=== PATIENT | female | born 1980 | race African-American/Black ===

== ENCOUNTER 2018-06-11 01:15 | Inpatient (IN) | payer MEDICAID, OTHER ==
[~2018-06-11] VITALS: Ht 162.6 cm; Wt 74.4 kg
[2018-06-11] MEDS ORDERED: MORPHINE SULFATE 4 MG/ML CPJ (NOT FOR IM USE) IV ONE (05:30)
[2018-06-11] MEDS ORDERED: ONDANSETRON HCL 4MG/2ML INJ IV ONE (05:30)
[2018-06-11] MEDS ORDERED: ONDANSETRON 4MG ODT PO ONE (05:45)
[2018-06-11] MEDS ORDERED: MORPHINE SULFATE 10 MG/ML CPJ IM ONE ×3 (05:45→13:45)
[2018-06-11 06:13] LABS: BASOPHILS % 0.7 % (0.0-2.0); EOSINOPHILS % 0.9 % (0.0-5.0); HEMATOCRIT. 30.8 % (36.0-48.0); HEMOGLOBIN. 9.2 g/dL (12.0-16.0); LYMPHOCYTES % 40.5 % (20.0-50.0); MEAN CORPUSCULAR HEMOGLOBIN 23.5 pg (28.0-32.0); MEAN CORPUSCULAR VOLUME 78.5 fL (81.0-99.0); MEAN PLATELET VOLUME 7.6 fl (7.4-10.4); MONOCYTES % 10.9 % (2.0-8.0); PLATELET 162 x1000/uL (130-400); RED BLOOD CELL COUNT 3.92 mill/uL (4.2-5.4); RED CELL DISTRIBUTION WIDTH 23.4 % (11.6-14.6)
[2018-06-11 06:19] LABS: CHLORIDE 100 mEq/L (98-107)
[2018-06-11] MEDS ORDERED: SODIUM CHLORIDE 0.9% 1,000 ML IV ONE (07:30)
[2018-06-11 08:22] LABS: PHOSPHORUS 3.4 mg/dL (2.5-4.9)
[2018-06-11] MEDS ORDERED: MORPHINE SULFATE 10 MG/ML CPJ IV ONE ×2 (08:30→11:00)
[2018-06-11 10:50] LABS: PLATELET ESTIMATE NORMAL
[2018-06-11] MEDS ORDERED: INSULIN REGULAR (HUMULIN R) 300UNITS/3ML SUBCUT ONE (11:00)
[2018-06-11 15:25] VITALS: BP 114/66
[2018-06-11] MEDS ORDERED: DOCUSATE SODIUM 100MG CAPSULE PO PRN (16:00)
[2018-06-11] MEDS ORDERED: CLONIDINE 0.1MG TABLET PO PRN (16:00)
[2018-06-11] MEDS ORDERED: MAGNESIUM/ALUMINUM HYDROXIDE/SIMETHICONE 30ML UDC PO PRN (16:00)
[2018-06-11] MEDS ORDERED: ONDANSETRON HCL 4MG/2ML INJ IV PRN (16:00)
[2018-06-11] MEDS ORDERED: IPRATROPIUM/ALBUTEROL 0.5-3(2.5)MG/3ML NEB INH PRN (16:00)
[2018-06-11] MEDS ORDERED: INSU100I28 SQ (16:01)
[2018-06-11] MEDS ORDERED: FOLI-43 PO (16:01)
[2018-06-11] MEDS ORDERED: HYDR8TAB2 PO (16:01)
[2018-06-11] MEDS ORDERED: HYDR500C18 PO (16:01)
[2018-06-11] MEDS ORDERED: RIVA20TA PO (16:01)
[2018-06-11] MEDS ORDERED: B50 GT (16:01)
[2018-06-11] MEDS ORDERED: INSU100C6 SQ (16:01)
[2018-06-11 16:05] VITALS: BP 114/66
[2018-06-11] MEDS ORDERED: DEXTROSE 50% WATER 50ML SYRINGE IV PRN (16:15)
[2018-06-11] MEDS: DIPHENHYDRAMINE 50MG/ML VIAL IV PRN (16:34)
[2018-06-11] MEDS: HYDROMORPHONE HCL/PF 2MG/ML CPJ IV PRN ×2 (16:35→21:46)
[2018-06-11] MEDS: BLOOD SUGAR DIAGNOSTIC STRIP TEST SCH ×3 (17:06→20:21)
[2018-06-11] MEDS: RIVAROXABAN 20 MG TABLET PO SCH (17:23)
[2018-06-11] MEDS: INSULIN LISPRO 100 UNITS/ML SUBCUT SCH ×2 (17:27→20:23)
[2018-06-11] MEDS: HYDROXYUREA 500MG CAPSULE PO SCH (18:14)
[2018-06-11 19:25] LABS: HAPTOGLOBIN 85 mg/dL (30-200)
[2018-06-11 19:35] LABS: CLARITY URINE CLEAR (CLEAR); COLOR URINE YELLOW (YELLOW); KETONES URINE NEGATIVE (NEGATIVE); LEUKOCYTE ESTERASE URINE NEGATIVE (NEGATIVE); NITRITE URINE NEGATIVE (NEGATIVE); OCCULT BLOOD URINE NEGATIVE (NEGATIVE); PH URINE 6.5 (4.5-8.0); PROTEIN URINE NEGATIVE (NEGATIVE); SPECIFIC GRAVITY URINE 1.029 (1.005-1.030); UROBILINOGEN URINE 0.2 E.U./dL (0.2-1.0)
[2018-06-11 19:50] LABS: *AMPHETAMINES SCREEN URINE NEGATIVE (NEGATIVE); *BARBITURATES SCREEN URINE NEGATIVE (NEGATIVE); *BENZODIAZEPINES SCREEN URINE NEGATIVE (NEGATIVE); *COCAINE SCREEN URINE NEGATIVE (NEGATIVE); METHADONE URINE SCREEN NEGATIVE (NEGATIVE); PHENCYCLIDINE URINE SCREEN NEGATIVE (NEGATIVE)
[2018-06-11 19:52] LABS: CANNABINOID URINE SCREEN NEGATIVE (NEGATIVE); OPIATES URINE SCREEN PRESUMTIVE POSITIVE (NEGATIVE)
[2018-06-11 20:00] VITALS: BP 110/67
[2018-06-12] VITALS: BP 117/62
[2018-06-12 03:05] VITALS: BP 106/58
[2018-06-12] MEDS: HYDROMORPHONE HCL/PF 2MG/ML CPJ IV PRN ×5 (03:06→21:16)
[2018-06-12] MEDS: DIPHENHYDRAMINE 50MG CAPSULE PO PRN (05:07)
[2018-06-12] MEDS: INSULIN LISPRO 100 UNITS/ML SUBCUT SCH ×4 (06:12→22:39)
[2018-06-12 08:00] VITALS: BP 113/56
[2018-06-12] MEDS: PANTOPRAZOLE SODIUM 40 MG/VIAL IV SCH (08:32)
[2018-06-12] MEDS: FOLIC ACID 1MG TABLET PO SCH (08:43)
[2018-06-12] MEDS: HYDROXYUREA 500MG CAPSULE PO SCH ×2 (08:43→17:00)
[2018-06-12] MEDS: BLOOD SUGAR DIAGNOSTIC STRIP TEST SCH ×3 (11:27→21:00)
[2018-06-12 12:00] VITALS: BP 130/59
[2018-06-12] MEDS ORDERED: SODIUM BICARBONATE 4% (2.4MEQ) 5ML VIAL IV ONE (12:02)
[2018-06-12] MEDS ORDERED: LIDOCAINE HCL 1% 20ML VIAL (Pyxis) INJ ONE (12:02)
[2018-06-12] MEDS: DIPHENHYDRAMINE 50MG/ML VIAL IV PRN ×3 (13:45→23:00)
[2018-06-12 16:08] VITALS: BP 126/67
[2018-06-12] MEDS: RIVAROXABAN 20 MG TABLET PO SCH (17:27)
[2018-06-12 18:52] LABS: BASOPHILS % 0.4 % (0.0-2.0); EOSINOPHILS % 0.7 % (0.0-5.0); HEMATOCRIT. 27.8 % (36.0-48.0); HEMOGLOBIN. 8.5 g/dL (12.0-16.0); MEAN CORPUSCULAR HEMOGLOBIN 23.3 pg (28.0-32.0); MEAN CORPUSCULAR VOLUME 75.9 fL (81.0-99.0); MEAN PLATELET VOLUME 7.9 fl (7.4-10.4); MONOCYTES % 7.2 % (2.0-8.0); NEUTROPHILS % 49.7 % (40.0-76.0); PLATELET 166 x1000/uL (130-400); RED BLOOD CELL COUNT 3.67 mill/uL (4.2-5.4); RED CELL DISTRIBUTION WIDTH 23.3 % (11.6-14.6)
[2018-06-12 18:59] LABS: CHLORIDE 100 mEq/L (98-107)
[2018-06-12 19:22] LABS: T4 FREE > 8.00 ng/dL (0.76-1.46)
[2018-06-12 19:24] LABS: HEPATITIS B SURFACE ANTIGEN NEGATIVE
[2018-06-12 19:54] LABS: HEPATITIS A AB IGM NEGATIVE (NEGATIVE)
[2018-06-12 20:00] VITALS: BP 119/66
[2018-06-13] VITALS: BP 119/56
[2018-06-13] MEDS: HYDROMORPHONE HCL/PF 2MG/ML CPJ IV PRN ×6 (01:10→22:29)
[2018-06-13] MEDS: DIPHENHYDRAMINE 50MG/ML VIAL IV PRN ×5 (02:58→20:09)
[2018-06-13 04:00] VITALS: BP 103/51
[2018-06-13] MEDS: SODIUM CHLORIDE 0.9% 1,000 ML IV SCH (05:13)
[2018-06-13] MEDS: BLOOD SUGAR DIAGNOSTIC STRIP TEST SCH ×4 (05:56→21:10)
[2018-06-13] MEDS: INSULIN LISPRO 100 UNITS/ML SUBCUT SCH ×4 (07:24→21:10)
[2018-06-13 08:00] VITALS: BP 117/65
[2018-06-13] MEDS: PANTOPRAZOLE SODIUM 40 MG/VIAL IV SCH ×2 (09:00→09:19)
[2018-06-13] MEDS: HYDROXYUREA 500MG CAPSULE PO SCH ×2 (09:19→17:14)
[2018-06-13] MEDS: FOLIC ACID 1MG TABLET PO SCH (09:19)
[2018-06-13 12:00] VITALS: BP 112/54
[2018-06-13] MEDS: RIVAROXABAN 20 MG TABLET PO SCH (17:14)
[2018-06-13 20:00] VITALS: BP 113/56
[2018-06-13] MEDS ORDERED: INSULIN GLARGINE UD 100 UNITS/ML SYR SUBCUT SCH (22:00)
[2018-06-13] MEDS: DIPHENHYDRAMINE 50MG CAPSULE PO PRN (22:47)
[2018-06-14] VITALS (8 sets, daily range): BP systolic 104–126; BP diastolic 54–79
[2018-06-14] MEDS: HYDROMORPHONE HCL/PF 2MG/ML CPJ IV PRN ×6 (02:45→20:57)
[2018-06-14] MEDS: DIPHENHYDRAMINE 50MG CAPSULE PO PRN (05:29)
[2018-06-14] MEDS: INSULIN LISPRO 100 UNITS/ML SUBCUT SCH ×4 (06:26→21:35)
[2018-06-14] MEDS: BLOOD SUGAR DIAGNOSTIC STRIP TEST SCH ×4 (06:29→21:00)
[2018-06-14] MEDS: PANTOPRAZOLE SODIUM 40 MG/VIAL IV SCH (09:00)
[2018-06-14] MEDS: FOLIC ACID 1MG TABLET PO SCH (09:35)
[2018-06-14] MEDS: HYDROXYUREA 500MG CAPSULE PO SCH ×2 (09:40→18:11)
[2018-06-14] MEDS: DIPHENHYDRAMINE 50MG/ML VIAL IV PRN ×3 (10:58→19:23)
[2018-06-14 16:07] LABS: BASOPHILS % 0.3 % (0.0-2.0); EOSINOPHILS % 0.6 % (0.0-5.0); HEMATOCRIT. 26.1 % (36.0-48.0); HEMOGLOBIN. 8.2 g/dL (12.0-16.0); LYMPHOCYTES % 35.7 % (20.0-50.0); MEAN CORPUSCULAR VOLUME 76.5 fL (81.0-99.0); MONOCYTES % 5.8 % (2.0-8.0); NEUTROPHILS % 57.6 % (40.0-76.0); PLATELET 159 x1000/uL (130-400); RED BLOOD CELL COUNT 3.42 mill/uL (4.2-5.4); RED CELL DISTRIBUTION WIDTH 22.7 % (11.6-14.6)
[2018-06-14 16:17] LABS: CHLORIDE 99 mEq/L (98-107)
[2018-06-14] MEDS: RIVAROXABAN 20 MG TABLET PO SCH (18:11)
[2018-06-14] MEDS: INSULIN GLARGINE UD 100 UNITS/ML SYR SUBCUT SCH (21:34)
[2018-06-15] VITALS: BP 111/63
[2018-06-15] MEDS: DIPHENHYDRAMINE 50MG CAPSULE PO PRN ×3 (00:11→18:33)
[2018-06-15] MEDS: HYDROMORPHONE HCL/PF 2MG/ML CPJ IV PRN ×3 (00:11→06:14)
[2018-06-15 04:00] VITALS: BP 119/69
[2018-06-15] MEDS: BLOOD SUGAR DIAGNOSTIC STRIP TEST SCH ×4 (06:15→20:49)
[2018-06-15] MEDS: DIPHENHYDRAMINE 50MG/ML VIAL IV PRN (06:15)
[2018-06-15] MEDS: INSULIN LISPRO 100 UNITS/ML SUBCUT SCH ×4 (06:39→20:49)
[2018-06-15 08:00] VITALS: BP 123/72
[2018-06-15] MEDS: FAMOTIDINE 20MG TABLET PO SCH ×2 (08:34→15:57)
[2018-06-15] MEDS: FOLIC ACID 1MG TABLET PO SCH (08:35)
[2018-06-15] MEDS: HYDROMORPHONE HCL 4MG TABLET PO PRN ×5 (08:36→21:33)
[2018-06-15] MEDS: HYDROXYUREA 500MG CAPSULE PO SCH ×2 (08:36→17:11)
[2018-06-15] MEDS: INSULIN GLARGINE UD 100 UNITS/ML SYR SUBCUT SCH ×3 (08:36→21:32)
[2018-06-15 11:59] VITALS: BP 115/69
[2018-06-15 13:23] LABS: BASOPHILS % 0.9 % (0.0-2.0); EOSINOPHILS % 1.1 % (0.0-5.0); HEMATOCRIT. 26.3 % (36.0-48.0); HEMOGLOBIN. 8.1 g/dL (12.0-16.0); LYMPHOCYTES % 33.8 % (20.0-50.0); MEAN CORPUSCULAR HEMOGLOBIN 24.2 pg (28.0-32.0); MEAN CORPUSCULAR VOLUME 78.8 fL (81.0-99.0); MEAN PLATELET VOLUME 7.9 fl (7.4-10.4); MONOCYTES % 7.1 % (2.0-8.0); NEUTROPHILS % 57.1 % (40.0-76.0); PLATELET 150 x1000/uL (130-400); RED BLOOD CELL COUNT 3.34 mill/uL (4.2-5.4); RED CELL DISTRIBUTION WIDTH 22.4 % (11.6-14.6)
[2018-06-15 13:44] LABS: CHLORIDE 101 mEq/L (98-107)
[2018-06-15 15:42] VITALS: BP 123/71
[2018-06-15] MEDS: RIVAROXABAN 20 MG TABLET PO SCH (17:11)
[2018-06-15] MEDS ORDERED: INSLIS SUBCUT (18:02)
[2018-06-15 20:00] VITALS: BP 115/61
[2018-06-15] MEDS: ACETAMINOPHEN 325MG TABLET PO PRN (21:32)
[2018-06-16] VITALS (7 sets, daily range): BP systolic 111–139; BP diastolic 59–79
[2018-06-16] MEDS: DIPHENHYDRAMINE 50MG CAPSULE PO PRN ×4 (00:55→20:11)
[2018-06-16] MEDS: HYDROMORPHONE HCL 4MG TABLET PO PRN ×8 (00:56→23:13)
[2018-06-16] MEDS: BLOOD SUGAR DIAGNOSTIC STRIP TEST SCH ×4 (06:29→21:06)
[2018-06-16] MEDS: INSULIN LISPRO 100 UNITS/ML SUBCUT SCH ×4 (06:33→21:09)
[2018-06-16] MEDS: FAMOTIDINE 20MG TABLET PO SCH ×2 (09:00→17:00)
[2018-06-16] MEDS: INSULIN GLARGINE UD 100 UNITS/ML SYR SUBCUT SCH ×2 (09:20→21:09)
[2018-06-16] MEDS: FOLIC ACID 1MG TABLET PO SCH (09:21)
[2018-06-16] MEDS: HYDROXYUREA 500MG CAPSULE PO SCH ×2 (09:21→17:08)
[2018-06-16] MEDS: SODIUM CHLORIDE 0.9% 1,000 ML IV SCH (16:30)
[2018-06-16] MEDS: RIVAROXABAN 20 MG TABLET PO SCH (17:13)
[2018-06-17] MEDS: HYDROMORPHONE HCL 4MG TABLET PO PRN ×8 (02:22→23:33)
[2018-06-17] MEDS: DIPHENHYDRAMINE 50MG CAPSULE PO PRN ×4 (02:22→23:32)
[2018-06-17 04:00] VITALS: BP 121/59
[2018-06-17] MEDS: SODIUM CHLORIDE 0.9% 1,000 ML IV SCH ×2 (05:50→19:10)
[2018-06-17] MEDS: BLOOD SUGAR DIAGNOSTIC STRIP TEST SCH ×4 (06:36→21:00)
[2018-06-17] MEDS: INSULIN LISPRO 100 UNITS/ML SUBCUT SCH ×4 (06:36→21:00)
[2018-06-17 08:00] VITALS: BP 113/63
[2018-06-17] MEDS: FAMOTIDINE 20MG TABLET PO SCH ×2 (08:22→17:33)
[2018-06-17] MEDS: HYDROXYUREA 500MG CAPSULE PO SCH ×2 (08:22→17:31)
[2018-06-17] MEDS: FOLIC ACID 1MG TABLET PO SCH (08:22)
[2018-06-17] MEDS: INSULIN GLARGINE UD 100 UNITS/ML SYR SUBCUT SCH ×2 (10:03→22:14)
[2018-06-17 12:00] VITALS: BP 117/72
[2018-06-17 15:30] LABS: BASOPHILS % 0.5 % (0.0-2.0); EOSINOPHILS % 0.5 % (0.0-5.0); HEMATOCRIT. 27.7 % (36.0-48.0); HEMOGLOBIN. 8.6 g/dL (12.0-16.0); LYMPHOCYTES % 26.8 % (20.0-50.0); MEAN PLATELET VOLUME 8.4 fl (7.4-10.4); MONOCYTES % 6.5 % (2.0-8.0); NEUTROPHILS % 65.7 % (40.0-76.0); PLATELET 192 x1000/uL (130-400); RED BLOOD CELL COUNT 3.59 mill/uL (4.2-5.4); RED CELL DISTRIBUTION WIDTH 22.3 % (11.6-14.6)
[2018-06-17 15:31] LABS: CHLORIDE 101 mEq/L (98-107)
[2018-06-17 16:00] VITALS: BP 144/72
[2018-06-17] MEDS: RIVAROXABAN 20 MG TABLET PO SCH (17:31)
[2018-06-17] MEDS: ACETAMINOPHEN 325MG TABLET PO PRN (18:19)
[2018-06-17] MEDS: DIPHENHYDRAMINE 50MG/ML VIAL IV PRN (19:52)
[2018-06-17 20:30] VITALS: BP 129/65
[2018-06-17 23:40] VITALS: BP 120/67
[2018-06-18] MEDS: HYDROMORPHONE HCL 4MG TABLET PO PRN ×7 (02:33→23:32)
[2018-06-18 04:30] VITALS: BP 123/67
[2018-06-18] MEDS: INSULIN LISPRO 100 UNITS/ML SUBCUT SCH ×4 (06:10→21:46)
[2018-06-18] MEDS: BLOOD SUGAR DIAGNOSTIC STRIP TEST SCH ×4 (06:10→20:28)
[2018-06-18] MEDS: DIPHENHYDRAMINE 50MG/ML VIAL IV PRN ×6 (06:15→18:50)
[2018-06-18] MEDS: HYDROXYUREA 500MG CAPSULE PO SCH ×3 (09:42→18:43)
[2018-06-18] MEDS: FAMOTIDINE 20MG TABLET PO SCH ×2 (09:42→18:15)
[2018-06-18] MEDS: FOLIC ACID 1MG TABLET PO SCH (09:42)
[2018-06-18] MEDS: INSULIN GLARGINE UD 100 UNITS/ML SYR SUBCUT SCH ×2 (09:49→21:47)
[2018-06-18] MEDS: RIVAROXABAN 20 MG TABLET PO SCH (18:43)
[2018-06-18 20:00] VITALS: BP 144/70
[2018-06-18] MEDS: DIPHENHYDRAMINE 50MG CAPSULE PO PRN (23:32)
[2018-06-19] VITALS (7 sets, daily range): BP systolic 91–140; BP diastolic 50–75
[2018-06-19 00:08] LABS: HEMATOCRIT. 25.6 % (36.0-48.0); HEMOGLOBIN. 8.1 g/dL (12.0-16.0); MEAN CORPUSCULAR HEMOGLOBIN 23.8 pg (28.0-32.0); MEAN CORPUSCULAR VOLUME 75.6 fL (81.0-99.0); MEAN PLATELET VOLUME 8.1 fl (7.4-10.4); PLATELET 176 x1000/uL (130-400); RED BLOOD CELL COUNT 3.39 mill/uL (4.2-5.4); RED CELL DISTRIBUTION WIDTH 22.6 % (11.6-14.6)
[2018-06-19] MEDS: BLOOD SUGAR DIAGNOSTIC STRIP TEST SCH ×4 (06:41→20:43)
[2018-06-19] MEDS: INSULIN LISPRO 100 UNITS/ML SUBCUT SCH ×4 (06:41→20:43)
[2018-06-19] MEDS: FOLIC ACID 1MG TABLET PO SCH ×2 (09:00→09:37)
[2018-06-19] MEDS: FAMOTIDINE 20MG TABLET PO SCH ×2 (09:00→18:00)
[2018-06-19] MEDS: INSULIN GLARGINE UD 100 UNITS/ML SYR SUBCUT SCH (09:43)
[2018-06-19 12:13] LABS: BASOPHILS % 0.3 % (0.0-2.0); EOSINOPHILS % 0.2 % (0.0-5.0); HEMATOCRIT. 23.9 % (36.0-48.0); HEMOGLOBIN. 7.7 g/dL (12.0-16.0); LYMPHOCYTES % 26.4 % (20.0-50.0); MEAN CORPUSCULAR HEMOGLOBIN 24.3 pg (28.0-32.0); MEAN CORPUSCULAR VOLUME 75.3 fL (81.0-99.0); MEAN PLATELET VOLUME 7.7 fl (7.4-10.4); MONOCYTES % 14.6 % (2.0-8.0); NEUTROPHILS % 58.5 % (40.0-76.0); PLATELET 183 x1000/uL (130-400); RED BLOOD CELL COUNT 3.17 mill/uL (4.2-5.4); RED CELL DISTRIBUTION WIDTH 22.2 % (11.6-14.6)
[2018-06-19 13:26] LABS: PLATELET ESTIMATE NORMAL
[2018-06-19] MEDS ORDERED: NALOXONE HCL 0.4 MG/ML 1ML VIAL IV SCH (14:00)
[2018-06-19] MEDS: RIVAROXABAN 20 MG TABLET PO SCH (18:00)
[2018-06-19] MEDS: HYDROXYUREA 500MG CAPSULE PO SCH (18:00)
[2018-06-19] MEDS: HYDROMORPHONE HCL 4MG TABLET PO PRN (21:03)
[2018-06-19] MEDS ORDERED: INSULIN GLARGINE UD 100 UNITS/ML SYR SUBCUT SCH (22:00)
[2018-06-20] VITALS: BP 97/62
[2018-06-20] MEDS: DIPHENHYDRAMINE 50MG CAPSULE PO PRN ×4 (03:49→21:47)
[2018-06-20] MEDS: HYDROMORPHONE HCL 4MG TABLET PO PRN ×6 (03:49→21:47)
[2018-06-20 04:00] VITALS: BP 121/69
[2018-06-20] MEDS: INSULIN LISPRO 100 UNITS/ML SUBCUT SCH ×4 (06:45→21:07)
[2018-06-20] MEDS: BLOOD SUGAR DIAGNOSTIC STRIP TEST SCH ×4 (06:45→20:58)
[2018-06-20 07:19] LABS: BASOPHILS % 0.5 % (0.0-2.0); EOSINOPHILS % 0.7 % (0.0-5.0); HEMATOCRIT. 23.3 % (36.0-48.0); HEMOGLOBIN. 7.3 g/dL (12.0-16.0); LYMPHOCYTES % 30.2 % (20.0-50.0); MEAN CORPUSCULAR VOLUME 76.4 fL (81.0-99.0); MEAN PLATELET VOLUME 7.9 fl (7.4-10.4); MONOCYTES % 9.8 % (2.0-8.0); NEUTROPHILS % 58.8 % (40.0-76.0); PLATELET 168 x1000/uL (130-400); RED BLOOD CELL COUNT 3.05 mill/uL (4.2-5.4); RED CELL DISTRIBUTION WIDTH 22.5 % (11.6-14.6)
[2018-06-20 08:00] VITALS: BP 111/47
[2018-06-20 08:12] LABS: CHLORIDE 107 mEq/L (98-107)
[2018-06-20] MEDS: HYDROXYUREA 500MG CAPSULE PO SCH ×2 (08:44→17:26)
[2018-06-20] MEDS: FOLIC ACID 1MG TABLET PO SCH (08:44)
[2018-06-20] MEDS: FAMOTIDINE 20MG TABLET PO SCH ×2 (08:44→17:25)
[2018-06-20] MEDS: ACETAMINOPHEN 325MG TABLET PO PRN ×2 (08:45→20:25)
[2018-06-20 12:00] VITALS: BP 100/48
[2018-06-20 16:00] VITALS: BP_SYST 100; BP_SYST 111; BP_DIAS 47; BP_DIAS 48
[2018-06-20] MEDS ORDERED: BISACODYL 5MG TABLET PO NR ×2 (16:30→20:30)
[2018-06-20] MEDS ORDERED: METOCLOPRAMIDE HCL 5MG TABLET PO NR ×2 (16:30→20:30)
[2018-06-20] MEDS ORDERED: VANCOMYCIN 1250MG in DEXTROSE 5% WATER 250ML IV NR (17:00)
[2018-06-20] MEDS ORDERED: SORBITOL 70% SOLN 30ML PO NR ×2 (17:30→21:30)
[2018-06-20 18:35] LABS: HEMATOCRIT 25.4 % (36.0-48.0); HEMOGLOBIN 7.9 g/dL (12.0-16.0)
[2018-06-20 20:00] VITALS: BP 129/72
[2018-06-21] VITALS (7 sets, daily range): BP systolic 107–155; BP diastolic 57–103
[2018-06-21] MEDS: HYDROMORPHONE HCL 4MG TABLET PO PRN ×7 (00:46→20:56)
[2018-06-21] MEDS: VANCOMYCIN 1 G PREMIX 200 ML IV SCH ×2 (02:28→02:39)
[2018-06-21] MEDS: DIPHENHYDRAMINE 50MG CAPSULE PO PRN ×3 (04:33→14:58)
[2018-06-21 06:22] LABS: CHLORIDE 103 mEq/L (98-107)
[2018-06-21 06:31] LABS: HEMATOCRIT. 24.8 % (36.0-48.0); HEMOGLOBIN. 7.9 g/dL (12.0-16.0); INR 1.2; MEAN CORPUSCULAR HEMOGLOBIN 24.1 pg (28.0-32.0); MEAN CORPUSCULAR VOLUME 75.8 fL (81.0-99.0); MEAN PLATELET VOLUME 7.9 fl (7.4-10.4); PARTIAL THROMBOPLASTIN TIME 32.8 sec (23.4-31.0); PLATELET 157 x1000/uL (130-400); PROTHROMBIN TIME 11.8 sec (9.1-11.1); RED BLOOD CELL COUNT 3.27 mill/uL (4.2-5.4); RED CELL DISTRIBUTION WIDTH 22.2 % (11.6-14.6)
[2018-06-21 06:33] LABS: CREATINE KINASE 87 IU/L (26-192)
[2018-06-21] MEDS: BLOOD SUGAR DIAGNOSTIC STRIP TEST SCH ×4 (06:40→20:57)
[2018-06-21] MEDS: INSULIN LISPRO 100 UNITS/ML SUBCUT SCH ×4 (06:41→21:15)
[2018-06-21] MEDS: HYDROXYUREA 500MG CAPSULE PO SCH ×2 (08:05→17:58)
[2018-06-21] MEDS: FOLIC ACID 1MG TABLET PO SCH (08:05)
[2018-06-21] MEDS: FAMOTIDINE 20MG TABLET PO SCH ×2 (08:07→17:00)
[2018-06-21] MEDS: ACETAMINOPHEN 325MG TABLET PO PRN (08:11)
[2018-06-21] MEDS ORDERED: PROPOFOL 200MG/20ML VIAL IV ONE (13:31)
[2018-06-21] MEDS: VANCOMYCIN 750 MG PREMIX 150 ML IV SCH (14:58)
[2018-06-21 15:56] LABS: PLATELET ESTIMATE NORMAL
[2018-06-21] MEDS: CEFEPIME 1,000 MG in DEXTROSE 5% WATER 50 ML IV SCH (16:30)
[2018-06-21] MEDS: DIPHENHYDRAMINE 50MG/ML VIAL IV PRN (20:56)
[2018-06-22] VITALS: BP 132/76
[2018-06-22] MEDS: DIPHENHYDRAMINE 50MG CAPSULE PO PRN ×2 (03:00→09:17)
[2018-06-22] MEDS: VANCOMYCIN 750 MG PREMIX 150 ML IV SCH (03:00)
[2018-06-22] MEDS: HYDROMORPHONE HCL 4MG TABLET PO PRN ×5 (03:01→12:25)
[2018-06-22] MEDS: CEFEPIME 1,000 MG in DEXTROSE 5% WATER 50 ML IV SCH (04:25)
[2018-06-22] MEDS: INSULIN LISPRO 100 UNITS/ML SUBCUT SCH ×2 (06:07→12:29)
[2018-06-22] MEDS: BLOOD SUGAR DIAGNOSTIC STRIP TEST SCH ×2 (06:08→11:14)
[2018-06-22] MEDS ORDERED: CHLORHEXIDINE GLUCONATE 4% EXTERNAL USE TOP SCH (09:00)
[2018-06-22] MEDS: FOLIC ACID 1MG TABLET PO SCH (09:17)
[2018-06-22] MEDS: FAMOTIDINE 20MG TABLET PO SCH (09:18)
[2018-06-22] MEDS: HYDROXYUREA 500MG CAPSULE PO SCH (11:05)
[2018-06-22 12:00] VITALS: BP 128/71
[2018-06-22 13:51] VITALS: BP 129/70
== END 2018-06-22 15:30 | disposition home or self-care (01) | DRG 662 ==
LOC: ER 01:15 → 8WST 11:32 → EDBEDREQ 11:37 → ENRESERV 14:17 → 8WST 06-19 02:33 → 6EST 06-21 18:42
PROVIDERS: ADMIT Internal Medicine; ATTEND Internal Medicine
PROC: 02HV33Z Insertion of Infusion Device into Superior Vena Cava, Percutaneous Approach (ICD-10-PCS; 2018-06-12)
PROC: B5181ZA Fluoroscopy of Superior Vena Cava using Low Osmolar Contrast, Guidance (ICD-10-PCS; 2018-06-12)
PROC: B548ZZA Ultrasonography of Superior Vena Cava, Guidance (ICD-10-PCS; 2018-06-12)
PROC: 0DJD8ZZ Inspection of Lower Intestinal Tract, Via Natural or Artificial Opening Endoscopic (ICD-10-PCS; principal; 2018-06-21)
DX: D57.00 Hb-SS disease with crisis, unspecified (principal); G93.41 Metabolic encephalopathy; E44.0 Moderate protein-calorie malnutrition; R78.81 Bacteremia; R65.10 Systemic inflammatory response syndrome (SIRS) of non-infectious origin without acute organ dysfunction; E11.649 Type 2 diabetes mellitus with hypoglycemia without coma; K86.1 Other chronic pancreatitis; E11.65 Type 2 diabetes mellitus with hyperglycemia; K52.9 Noninfective gastroenteritis and colitis, unspecified; R22.2 Localized swelling, mass and lump, trunk; K62.5 Hemorrhage of anus and rectum; L02.221 Furuncle of abdominal wall; L72.3 Sebaceous cyst; R74.8 Abnormal levels of other serum enzymes; E66.9 Obesity, unspecified; R16.2 Hepatomegaly with splenomegaly, not elsewhere classified; N20.0 Calculus of kidney; Z90.49 Acquired absence of other specified parts of digestive tract; Z68.28 Body mass index [BMI] 28.0-28.9, adult; Z86.718 Personal history of other venous thrombosis and embolism; Z88.6 Allergy status to analgesic agent; Z88.0 Allergy status to penicillin; Z88.8 Allergy status to other drugs, medicaments and biological substances; Z91.018 Allergy to other foods; Z98.51 Tubal ligation status
CPT/HCPCS: 36415; 36569; 74176; 76937; 77001; 80048; 80076; 80305; 82010; 82140; 82550; 82962; 83010; 83036; 83615; 83735; 84100; 84439; 84443; 84481; 84550; 85014; 85018; 85044; 86705; 86709; 86803; 86850; 86900; 86920; 87015; 87045; 87077; 87186; 87340; 87427; 87449; 89055; 96372; 96374; 99285; C1725; C1893; C9113; J0692; J1170; J1200; J1815; J2270; J2310; J2405; J2704; J3370; J3490; J7030; J7050; J7060; J7620; J8597; Q0162; Q0163